=== PATIENT | female | born 1985 | race Caucasian/White ===

== ENCOUNTER 2016-06-10 21:24 | Inpatient (IN) | payer BC, OTHER ==
[~2016-06-10] VITALS: Ht 170.2 cm; Wt 78.5 kg
[~2016-06-10 21:24] MED LIST: PRENTAB26 PO
[2016-06-10] MEDS ORDERED: LACTATED RINGER'S 1000ML 1,000 ML IV PRN (21:29)
[2016-06-10] MEDS ORDERED: LACTATED RINGER'S 1000ML 1,000 ML IV SCH ×2 (21:29→23:09)
[2016-06-10] MEDS ORDERED: PENICILLIN G POTASSIUM IV 3 MU in DEXTROSE 5% 100ML 100 ML IV PRN (21:30)
[2016-06-10] MEDS ORDERED: PENICILLIN G POTASSIUM IV 6 MU in DEXTROSE 5% 250ML 250 ML IV STA (21:31)
[2016-06-10 21:32] VITALS: Ht 170.2 cm; Wt 78.5 kg
[2016-06-10] MEDS ORDERED: OXYTOCIN 30 UNITS/500ML NSS IV ONE (21:37)
[2016-06-10 21:54] LABS: MEAN CELL VOLUME 74.2 fL (80-100); MEAN CORPUSCULAR HEMOGLOBIN 24.8 pg (25-34); MEAN CORPUSCULAR HGB CONC 33.4 g/dl (32-36); PLATELET COUNT 316 K/uL (130-400); RED BLOOD COUNT 4.31 M/uL (4.2-5.4); WHITE BLOOD COUNT 10.08 K/uL (4.8-10.8)
[2016-06-10] MEDS ORDERED: MEPERIDINE HCL 50 MG/ML CARP ONE (23:12)
[2016-06-10] MEDS ORDERED: CEFAZOLIN IV 2,000 MG in DEXTROSE 5% 50ML 50 ML IV STA (23:12)
[2016-06-10] MEDS ORDERED: BENZOCAINE 20% AER SPR 82.5 GM CAN EXT PRN (23:15)
[2016-06-10] MEDS ORDERED: HYDROCORTISONE ACETATE 25 MG SUPP PR PRN (23:15)
[2016-06-10] MEDS ORDERED: IBUPROFEN 600 MG TAB PO PRN (23:15)
[2016-06-10] MEDS ORDERED: MEASLES, MUMPS & RUBELLA VIRUS VIAL SQ. ONE (23:15)
[2016-06-10] MEDS ORDERED: OXYTOCIN 30 UNITS/500ML NSS IV PRN (23:15)
[2016-06-10] MEDS ORDERED: ACETAMINOPHEN 325 MG TAB PO PRN (23:15)
[2016-06-10] MEDS ORDERED: SUPERCREAM 0.870 % 15GM JAR EXT PRN (23:15)
[2016-06-10] MEDS ORDERED: OXYCODONE/ACETAMINOPHEN 5-325 TAB PO PRN (23:15)
[2016-06-10] MEDS ORDERED: DIPHTHERIA/TETANUS/PERTUSSIS 0.5 ML SYR/VIAL IM. ONE (23:15)
[2016-06-10] MEDS ORDERED: LANOLIN OINT EXT PRN ×2 (23:15)
[2016-06-10] MEDS ORDERED: MEPERIDINE HCL 50 MG/ML CARP IV STA (23:18)
[2016-06-11] VITALS (8 sets, daily range): BP systolic 116–146; BP diastolic 79–87; PULSE 78–101; TEMP 36.5–37.6; O2SAT 99
[2016-06-11] MEDS: FERROUS SULFATE 325 MG TAB PO SCH (07:51)
[2016-06-11] MEDS: DOCUSATE SODIUM 100 MG CAP PO SCH ×2 (07:52→20:00)
[2016-06-11] MEDS: PRENATAL VITAMIN TAB PO SCH (07:52)
[2016-06-11 07:53] LABS: HEMATOCRIT 29.8 % (37-47)
--- NOTE | 2016-06-11 08:39 | DELIVERY SUMMARY ---
DATE OF OPERATION: 06/10/2016 TIME OF DELIVERY OF BABY: 22:51 p.m. TIME OF DELIVERY OF PLACENTA: 23:02 p.m. DETAILS OF DELIVERY: The patient was found to be fully dilated and desired to push. She pushed for about 10 minutes and delivered the head without difficulty. There was a nuchal cord around the neck x1 which was reduced. Shoulders were delivered with minimal traction and baby was handed off to the mother where mouth and nose were suctioned and cord was clamped x2 and cut. It was a 3-vessel cord. Cord blood was obtained. Then the perineum and vagina were checked for lacerations. There was a small about 2 cm perineal laceration at the posterior fourchette and was mild second degree. The patient was given 1% lidocaine for local anesthesia and then this was repaired with 3-0 Vicryl in a running locked fashion and good hemostasis was achieved. Then placenta was found to be in the vagina, delivered spontaneously intact and complete. Lower segment was felt and there were membranes coming from inside of the uterus. Some of those were removed manually and with the help of ring forceps, but there were some coming from the upper uterus. After verbal consent was obtained, the patient was given IV Demerol for pain control and then with a sharp curette these membranes were retrieved without difficulty. There was small pieces of placenta like tissue with it too. Then uterus was explored and found to be empty. Fundus was firm. EBL was 300. She was given 2 grams of cefazolin during this procedure. Mother and baby tolerated the procedure well. Sponge, lap, needle and instrument counts were correct x2. The baby was a viable female , Apgars 8/9. Weight is 6 lb 5 oz. No complications happened and I was present during whole procedure. I attest to the content of the Intraoperative Record and any orders documented therein. Any exceptions are noted below. MTDD
--- NOTE | 2016-06-11 10:35 | OB/GYN Progress Note ---
[employer]IST Progress Note Date of Service: Jun 11, 2016. Patient is seen and examined. She feels well, no complaints. Ambulating without dizziness Voiding without difficulty Tolerating regular diet with out N&V Bleeding is minimal No DONIS/ Change in vision/ fever/ chills/ CP/ SOB/ N&V/ Leg pain Breast feeding without problems Date Time Temp Pulse Resp B/P Pulse Ox O2 Delivery O2 Flow Rate FiO2 06/11/16 08:20 Room Air 06/11/16 08:20 36.8 101 20 132/84 Room Air 06/11/16 06:13 18 134/85 Room Air 06/11/16 04:12 36.8 87 18 146/87 Room Air 06/11/16 02:01 Room Air 06/11/16 01:59 36.5 96 20 139/82 Room Air Last 24 Hours Test 06/10/16 21:45 06/11/16 07:28 White Blood Count 10.08 K/uL Red Blood Count 4.31 M/uL Hemoglobin 10.7 g/dL 9.8 g/dL Hematocrit 32.0 % 29.8 % Mean Corpuscular Volume 74.2 fL Mean Corpuscular Hemoglobin 24.8 pg Mean Corpuscular Hemoglobin Concent 33.4 g/dl RDW Standard Deviation 39.1 fL RDW Coefficient of Variation 14.5 % Platelet Count 316 K/uL Mean Platelet Volume 9.0 fL PE: General: Alert, orientedx3, NAD Abd: soft, NT, fundus firm, below Umbilicus Perineum intact, Lochia rubra minimal Ext; NT, no edema AP: 31 yo s/p and curettage, ppd# 1 VSS Afebrile doing well Continue routine care All questions were answered D/C home tomorrow
[2016-06-11] MEDS ORDERED: BISACODYL 5 MG TABEC PO SCH (20:00)
[2016-06-12] MEDS ORDERED: BISACODYL 10 MG SUPP PR PRN (07:00)
[2016-06-12 07:15] VITALS: BP 138/87; PULSE 85; TEMP 36.7
[2016-06-12 07:22] LABS: HEMATOCRIT 30.7 % (37-47); MEAN CELL VOLUME 75.1 fL (80-100); MEAN CORPUSCULAR HEMOGLOBIN 24.2 pg (25-34); MEAN CORPUSCULAR HGB CONC 32.2 g/dl (32-36); PLATELET COUNT 295 K/uL (130-400); RED BLOOD COUNT 4.09 M/uL (4.2-5.4); WHITE BLOOD COUNT 10.19 K/uL (4.8-10.8)
[2016-06-12] MEDS: PRENATAL VITAMIN TAB PO SCH (08:00)
[2016-06-12] MEDS: DOCUSATE SODIUM 100 MG CAP PO SCH (08:00)
[2016-06-12] MEDS: FERROUS SULFATE 325 MG TAB PO SCH ×2 (08:00→08:18)
[2016-06-12] MEDS ORDERED: MTR600X PO (08:15)
--- NOTE | 2016-06-12 08:19 | Discharge Instructions ---
Discharge Instructions Admission Reason for Admission: Laboring Discharge Discharge Diagnosis / Problem: term delivered Discharge Goals Goal(s): Routine recovery after delivery Activity Recommendations Activity Limitations: as noted below Lifting Limitations: no more than 10 pounds Exercise/Sports Limitations: as tolerated, gradually increase as tolerated May Resume Sexual Activity: after follow-up appointment Shower/Bathe: no limitations Driving or Machine Use: resume 3 days after discharge . Instructions / Follow-Up Instructions / Follow-Up 6 weeks Current Hospital Diet Patient's current hospital diet: Regular OB Diet Discharge Diet Recommended Diet: Regular OB Diet Fluid Restriction: None Pending Studies Studies pending at discharge: no Medical Emergencies . Who to Call and When: Medical Emergencies: If at any time you feel your situation is an emergency, please call 911 immediately. . Non-Emergent Contact Non-Emergency issues call your: Primary Care Provider . . "Provider Documentation" section prepared by Sid Decker. VTE Core Measure Inpt VTE Proph given/why not?: Treatment not indicated
--- NOTE | 2016-06-12 08:22 | OB/GYN Progress Note ---
[employer] Progress Note Date of Service Jun 12, 2016. Subjective conversation w/ patient, physical exam Ambulation: ambulating normally Voiding: no voiding problems Passing Gas: Yes Diet Tolerance: Regular Diet Lochia: Small Feeding Type: Breast Feeding Objective Vital Signs Date Time Temp Pulse Resp B/P Pulse Ox O2 Delivery O2 Flow Rate FiO2 06/12/16 07:15 36.7 85 18 138/87 Room Air 06/12/16 07:15 Room Air 06/11/16 23:40 37.1 78 18 122/79 Room Air 06/11/16 23:40 Room Air 06/11/16 20:17 36.8 89 18 126/86 Room Air 06/11/16 16:30 36.6 85 16 123/85 99 Room Air 06/11/16 16:30 Room Air 06/11/16 12:00 37.6 90 16 116/80 Room Air Physical Exam General Appearance: NO APPARENT DISTRESS Abdomen: non tender, soft Fundus: Firm Extremities: non-tender, normal inspection, no pedal edema, no calf tenderness Laboratory Results Last 24 Hours Test 06/12/16 06:50 White Blood Count 10.19 K/uL Red Blood Count 4.09 M/uL Hemoglobin 9.9 g/dL Hematocrit 30.7 % Mean Corpuscular Volume 75.1 fL Mean Corpuscular Hemoglobin 24.2 pg Mean Corpuscular Hemoglobin Concent 32.2 g/dl RDW Standard Deviation 39.9 fL RDW Coefficient of Variation 14.7 % Platelet Count 295 K/uL Mean Platelet Volume 9.0 fL Assessment and Plan Post- Day Number: 1 Continue Routine Care: discharged
[2016-06-12 10:33] VITALS: BP_DIAS 87; PULSE 85; TEMP 36.7
== END 2016-06-12 10:35 | disposition home or self-care (01) | DRG 775 ==
LOC: C.OPB 21:24 → C.LD 21:24 → C.OPB 21:30 → C.OBG 06-11 01:45
PROVIDERS: ADMIT Obstetrics & Gynecology; ATTEND Obstetrics & Gynecology
PROC: 10E0XZZ Delivery of Products of Conception, External Approach (ICD-10-PCS; principal; 2016-06-10)
PROC: 0KQM0ZZ Repair Perineum Muscle, Open Approach (ICD-10-PCS; principal; 2016-06-10)
PROC: 10D07Z8 Extraction of Products of Conception, Other, Via Natural or Artificial Opening (ICD-10-PCS; principal; 2016-06-10)
DX: O70.1 Second degree perineal laceration during delivery (principal); O69.81X0 Labor and delivery complicated by cord around neck, without compression, not applicable or unspecified; Z3A.37 37 weeks gestation of pregnancy; Z37.0 Single live birth

== ENCOUNTER 2020-04-17 02:02 | Inpatient (IN) ==
[2020-04-17] MEDS ORDERED: PENICILLIN G POTASSIUM 3 MU in DEXTROSE 5% 100 ML IV PRN (02:31)
[2020-04-17] MEDS ORDERED: OXYTOCIN 30 UNITS/500 ML BAG IV PRN ×2 (02:31→04:08)
[2020-04-17] MEDS ORDERED: PENICILLIN G POTASSIUM 6 MU in DEXTROSE 5% 250 ML IV STA (02:31)
[2020-04-17] MEDS ORDERED: LACTATED RINGER'S 1,000 ML IV PRN (02:31)
[2020-04-17 03:04] LABS: Basophils # (auto) 0.02 K/uL (0-0.2); Basophils % (auto) 0.2 %; Eosinophils # (auto) 0.02 K/uL (0-0.5); Eosinophils % (auto) 0.2 %; Hematocrit (blood only) 32.8 % (37-47); Hemoglobin 10.9 g/dL (12.0-16.0); Immature Granulocytes # (auto) 0.04 K/uL (0.00-0.02); Immature Granulocytes % (auto) 0.4 %; Lymphocytes # (auto) 1.62 K/uL (1.2-3.4); Mean Corpuscular Hemoglobin 24.9 pg (25-34); Mean Corpuscular Volume 75.1 fL (80-100); Mean Platelet Volume 8.6 fL (7.4-10.4); Monocytes # (auto) 0.52 K/uL (0.11-0.59); Monocytes % (auto) 4.8 %; Neutrophils % (auto) 79.4 %; Platelet Count 268 K/uL (130-400); RDW Coefficient of Variation 13.8 % (11.5-14.5); RDW Standard Deviation 37.6 fL (36.4-46.3); Red Blood Count 4.37 M/uL (4.2-5.4); White Blood Count 10.82 K/uL (4.8-10.8)
[2020-04-17 03:13] LABS: Mean Corpuscular Hgb Conc 33.2 g/dL (32-36)
[2020-04-17] MEDS ORDERED: LIDOCAINE HCL 1% 20 ML VIAL ONE (03:50)
[2020-04-17] MEDS ORDERED: ACETAMINOPHEN 325 MG TAB PO PRN (04:08)
[2020-04-17] MEDS ORDERED: bisacodyL 10 MG SUPP PR PRN (04:08)
[2020-04-17] MEDS ORDERED: ACETAMINOPHEN W/CODEINE #3 1 TAB PO PRN (04:08)
[2020-04-17] MEDS ORDERED: BENZOCAINE 20% AER SPR 82.5 GM CAN EXT PRN (04:08)
[2020-04-17] MEDS ORDERED: DIPHTHERIA/TETANUS/PERTUSSIS 0.5 ML SYR/VIAL IM ONE (04:08)
[2020-04-17] MEDS ORDERED: HYDROCORTISONE ACETATE 25 MG SUPP PR PRN (04:08)
[2020-04-17] MEDS ORDERED: SUPERCREAM 0.870% 15 GM JAR EXT PRN (04:08)
[2020-04-17] MEDS ORDERED: oxyCODONE/ACETAMINOPHEN 5mg/325mg TAB PO PRN (04:08)
[2020-04-17] MEDS ORDERED: IBUPROFEN 600 MG TAB PO PRN (04:08)
[2020-04-17] MEDS: PRENATAL VITAMIN 1 TAB PO SCH (09:01)
[2020-04-17] MEDS: DOCUSATE SODIUM 100 MG CAP PO SCH (09:01)
--- NOTE | 2020-04-17 13:34 | Operative Report (OR) ---
DATE OF OPERATION: 04/17/2020 DELIVERY NOTE She is a multip who has not had an office visit in several weeks. She has had no strep screening. She comes in in spontaneous labor with a history of saying that her membranes had ruptured over 24 hours before. A strep culture was done. She refused antibiotics or Pitocin. She labored spontaneously, quickly went to full dilatation, delivered a live male infant via direct occiput anterior position over an intact perineum. A nuchal cord x1 was reduced over the head. was suctioned through the mouth and the nose. Shoulders were delivered without difficulty. Cord was allowed to pulse for a minute, then clamped, cut by the father. Cord blood was taken. The patient refused IV Pitocin. Placenta was removed intact. Hemostasis was good. Inspection of the perineum revealed a first-degree laceration. The area was infiltrated with local and then the vaginal mucosa was approximated out and to beyond the hymenal ring with a running heavy Vicryl. A deep suture of Vicryl was used to approximate the bulbocavernosus muscle. Separate deep suture was used to approximate the perineal body. Running subcuticular suture was used to approximate the perineal skin edges. Vaginal exam was normal after this. Estimated blood loss was 100 mL. The patient tolerated the procedure well. I attest to the content of the Intraoperative Record and any orders documented therein. Any exceptions are noted below. BOBO
[2020-04-18 06:31] LABS: Hematocrit (blood only) 33.3 % (37-47); Hemoglobin 11.1 g/dL (12.0-16.0); Mean Corpuscular Hemoglobin 25.2 pg (25-34); Mean Corpuscular Hgb Conc 33.3 g/dL (32-36); Mean Corpuscular Volume 75.5 fL (80-100); Mean Platelet Volume 8.9 fL (7.4-10.4); Platelet Count 296 K/uL (130-400); RDW Coefficient of Variation 14.1 % (11.5-14.5); RDW Standard Deviation 38.3 fL (36.4-46.3); Red Blood Count 4.41 M/uL (4.2-5.4); White Blood Count 12.06 K/uL (4.8-10.8)
--- NOTE | 2020-04-18 06:56 | Obstetrical Progress Note ---
Date of Service April 18, 2020 Assessment & Plan (1) Normal course: PPD #1 pt doing well No complaints pt wishes to be discharged home today disch home with instruction Subjective Ambulation: ambulating normally Voiding: no voiding problems Passing Gas:: Yes Diet Tolerance:: regular diet Lochia:: Small Feeding Type:: breast feeding Review of Systems All systems reviewed & are unremarkable except as noted in HPI & below Physical Exam Constitutional WD/WN, vitals as above well developed and well nourished Eyes PERRL, conjunctivae normal, anicteric sclerae Neck trachea midline, no thyromegaly Respiratory normal respiratory effort, lungs clear to auscultation Auscultation: no crackles, no rales and no wheezes Cardiovascular RRR, no murmur, no edema Gastrointestinal (Abdomen) normal bowel sounds, soft, nontender, no hepatosplenomegaly Uterus is below umbilicus Musculoskeletal no cyanosis or clubbing, extremities motor strength 5/5 Skin no rashes, warm and dry Neurologic patellar DTR's 2+ bilat, sensation intact Psychiatric A+Ox3, euthymic affect Genitourinary normal external appearance Results & Data ([facility]) Vital Signs (Past 12 Hours) Vital Signs Temp Pulse Resp BP Pulse Ox 04/18/20 04:00 36.7 C 80 18 126/85 04/17/20 23:30 36.8 C 71 18 120/78 04/17/20 19:40 37.1 C 79 18 126/82 99
[2020-04-18] MEDS: PRENATAL VITAMIN 1 TAB PO SCH (09:07)
[2020-04-18] MEDS ORDERED: bisacodyL 5 MG TABEC PO SCH (20:00)
[2020-04-18] MEDS: DOCUSATE SODIUM 100 MG CAP PO SCH (20:41)
[2020-04-19 06:50] LABS: Hematocrit (blood only) 32.2 % (37-47); Hemoglobin 10.6 g/dL (12.0-16.0)
[2020-04-19] MEDS ORDERED: LABETALOL HCL 100 MG TAB PO SCH (08:00)
[2020-04-19] MEDS: DOCUSATE SODIUM 100 MG CAP PO SCH (08:07)
[2020-04-19 08:10] LABS: Basophils # (auto) 0.01 K/uL (0-0.2); Basophils % (auto) 0.1 %; Eosinophils # (auto) 0.17 K/uL (0-0.5); Eosinophils % (auto) 1.6 %; Hematocrit (blood only) 34.6 % (37-47); Hemoglobin 11.2 g/dL (12.0-16.0); Immature Granulocytes # (auto) 0.05 K/uL (0.00-0.02); Immature Granulocytes % (auto) 0.5 %; Lymphocytes # (auto) 2.04 K/uL (1.2-3.4); Lymphocytes % (auto) 18.6 %; Mean Corpuscular Hemoglobin 24.9 pg (25-34); Mean Corpuscular Hgb Conc 32.4 g/dL (32-36); Mean Corpuscular Volume 76.9 fL (80-100); Mean Platelet Volume 8.6 fL (7.4-10.4); Monocytes # (auto) 0.49 K/uL (0.11-0.59); Monocytes % (auto) 4.5 %; Neutrophils # (auto) 8.19 K/uL (1.4-6.5); Neutrophils % (auto) 74.7 %; Platelet Count 322 K/uL (130-400); RDW Coefficient of Variation 14.3 % (11.5-14.5); RDW Standard Deviation 40.2 fL (36.4-46.3); White Blood Count 10.95 K/uL (4.8-10.8)
[2020-04-19 08:43] LABS: Albumin Level 2.7 gm/dl (3.4-5.0); Calcium 9.2 mg/dl (8.5-10.1); Creatinine Clr Calc Pharmacy 120.4 ml/min; Est GFR (African American) 130.1; Est GFR (Non-African American) 112.3; Potassium 3.7 mmol/L (3.5-5.1)
[2020-04-19 08:46] LABS: Albumin Globulin Ratio 0.6 (0.9-2); Bilirubin,Total 0.2 mg/dl (0.2-1); Globulin 4.9 gm/dl (2.5-4.0); Total Protein 7.6 gm/dl (6.4-8.2)
[2020-04-19] MEDS: PRENATAL VITAMIN 1 TAB PO SCH (09:08)
--- NOTE | 2020-04-19 10:19 | Obstetrical Progress Note ---
Date of Service April 19, 2020 Assessment & Plan Admission and Anticipated Discharge Date Admission Date: April 17, 2020 Subjective Patient is seen and examined. She feels well, no complaints. Ambulating without dizziness Voiding without difficulty Tolerating regular diet with out N&V Bleeding is minimal No headache/ change in vision/fever/ chills/ CP/ SOB/ N&V/ Leg pain Breast feeding without problems Vital Signs Temp Pulse Resp BP Pulse Ox 04/19/20 09:45 86 138/90 04/19/20 07:42 37.0 C 91 H 20 150/91 H 98 04/19/20 05:10 154/104 H 04/19/20 04:40 36.8 C 91 H 16 144/87 H 97 04/19/20 01:30 133/87 04/19/20 00:50 36.8 C 75 17 144/90 H 97 04/18/20 20:30 37.0 C 85 16 132/91 98 04/18/20 15:10 36.8 C 89 18 134/85 100 PE: General: Alert, orientedx3, NAD Abd: soft, NT, no epig/ RUQ tenderness fundus firm, below Umbilicus Perineum intact, Lochia rubra minimal Ext; NT, no edema, no clonus AP: 35 yo s/p , ppd# 2 VSS Afebrile doing well On Labetalol for BP, asymptomatic Desires d/c now Discussed BP at home and f/u in office Discussed when to call All questions were answered D/C home Results & Data ([facility]) Vital Signs (Past 12 Hours) Vital Signs Temp Pulse Resp BP Pulse Ox 04/19/20 09:45 86 138/90 04/19/20 07:42 37.0 C 91 H 20 150/91 H 98 04/19/20 05:10 154/104 H 04/19/20 04:40 36.8 C 91 H 16 144/87 H 97 04/19/20 01:30 133/87 04/19/20 00:50 36.8 C 75 17 144/90 H 97
== END 2020-04-19 10:45 | disposition home or self-care (01) | DRG 807 ==
LOC: OPB 02:02 → 4S1 02:09 → 4S2 06:50